=== PATIENT | female | born 1985 | race Caucasian/White ===

== ENCOUNTER 2019-09-10 14:05 | Emergency (ER) | payer OTHER ==
[~2019-09-10] VITALS: Ht 160 cm; Wt 60.9 kg
[~2019-09-10 14:05] MED LIST: NOCURR
[2019-09-10 14:53] LABS: GLUCOSE,POINT OF CARE 85 MG/DL (70-110)
[2019-09-10 15:36] LABS: BASOPHILS % (AUTO) 0.3 % (0.0-2.0); EOSINOPHILS % (AUTO) 0.3 % (1.0-6.0); HEMATOCRIT 46.6 % (36-46); HEMOGLOBIN 15.6 g/dL (12.0-16.0); LYMPHOCYTES # (AUTO) 0.9 K/uL (1.0-4.8); LYMPHOCYTES % (AUTO) 9.2 % (22.0-44.0); MEAN CORPUSCULAR HEMOGLOBIN 30.3 pg (26.0-34.0); MEAN CORPUSCULAR HGB CONC 33.5 G/dL (31.0-37.0); MEAN CORPUSCULAR VOLUME 90 fL (80-100); MONOCYTES # (AUTO) 0.6 K/uL (0.1-1.0); MONOCYTES % (AUTO) 6.4 % (2.0-9.0); NEUTROPHILS # (AUTO) 7.9 K/uL (1.8-7.7); NEUTROPHILS % (AUTO) 83.8 % (40.0-70.0); PLATELET COUNT (AUTO) 286 K/uL (150-450); RED BLOOD CELL COUNT(AUTO) 5.15 MIL/uL (4.00-5.20); RED CELL DISTRIBUTION WIDTH 14.1 % (11.5-14.5)
[2019-09-10 15:49] LABS: ANION GAP 9 mmol/L (8-16); CALCIUM, TOTAL 8.6 mg/dL (8.8-10.5); CARBON DIOXIDE 29 mmol/L (22-29); CHLORIDE 102 mmol/L (98-107); CREATININE 0.82 mg/dL (0.60-1.30); GLOMERULAR FILTR. RATE CALC > 60 mL/min (>60); GLUCOSE,RANDOM 87 mg/dL (70-110); POTASSIUM 3.6 mmol/L (3.5-5.1); SODIUM SERUM 140 mmol/L (136-145); UREA NITROGEN, BLOOD 6 mg/dL (7-18)
[2019-09-10 15:51] LABS: ALANINE AMINOTRANSFERASE 24 U/L (12-78); ALBUMIN 3.8 g/dL (3.4-5.0); ALKALINE PHOSPHATASE 100 U/L (46-116); ASPARTATE AMINOTRANSFERASE 17 U/L (15-37); BILIRUBIN,TOTAL 0.5 mg/dL (0.1-1.0); TOTAL PROTEIN, SERUM 7.6 g/dL (6.4-8.2)
[2019-09-10 16:16] LABS: HCG,QUANTITATIVE < 1 mIU/mL (0-6)
[2019-09-10] MEDS ORDERED: ACETAMINOPHEN 325 MG TABLET PO ONE (17:30)
[2019-09-10 18:02] VITALS: BP 123/96
== END 2019-09-10 18:08 | disposition home or self-care (01) ==
LOC: EMS 14:06
DX: R55 Syncope and collapse (principal); J32.9 Chronic sinusitis, unspecified; Z85.89 Personal history of malignant neoplasm of other organs and systems
CPT/HCPCS: 70450; 85379; 93005